=== PATIENT | female | born 1960 | race Two or more races ===

== ENCOUNTER 2023-09-13 08:14 | Emergency (ER) | payer OTHER ==
[~2023-09-13] VITALS: Ht 172.7 cm; Wt 145.1 kg
[~2023-09-13 08:14] MED LIST: PAXIL30 MG
[2023-09-13] MEDS ORDERED: METOPROLOL SUCC50 MG PO (08:29)
[2023-09-13] MEDS ORDERED: RISPERIDONE0.25 MG PO (08:29)
[2023-09-13] MEDS ORDERED: NORVASC10 MG PO (08:29)
[2023-09-13] MEDS ORDERED: AVAPRO300 MG PO (08:30)
[2023-09-13] MEDS ORDERED: MOUNJARO10 MG/0.5 SQ (08:30)
[2023-09-13] MEDS ORDERED: FARXIGA10 MG PO (08:30)
[2023-09-13] MEDS ORDERED: METHYLPREDNISOLONE SOD SUCC 40 MG VIAL ONE (08:53)
[2023-09-13] MEDS ORDERED: DIPHENHYDRAMINE HCL 50 MG/ML VIAL 1ML ONE (08:53)
[2023-09-13] MEDS ORDERED: METHYLPREDNISOLONE SOD SUCC 40 MG VIAL IM ONE (09:00)
[2023-09-13] MEDS ORDERED: DIPHENHYDRAMINE HCL 50 MG/ML VIAL 1ML IM ONE (09:00)
[2023-09-13 09:13] LABS: HEMATOCRIT 40.7 % (36.0-45.00); HEMOGLOBIN 13.5 g/dL (12.0-15.00); MEAN CELL VOLUME 91.4 fL (80.00-100.00); MEAN CORPUSCULAR HEMOGLOBIN 30.4 pg (27.00-32.0); MEAN CORPUSCULAR HGB CONC 33.3 g/dl (32.0-36.0); PLATELET COUNT 242 K/uL (150-450); RED BLOOD COUNT 4.45 M/uL (4.00-6.00); RED CELL DISTRIBUTION WIDTH 14.9 % (11.5-14.5)
[2023-09-13] MEDS ORDERED: BENADRYL25 MG PO (09:48)
== END 2023-09-13 09:51 | disposition home or self-care (01) ==
LOC: ER 08:15
PROVIDERS: General Practice
DX: T78.49XA Other allergy, initial encounter (principal); X58.XXXA Exposure to other specified factors, initial encounter; I10 Essential (primary) hypertension; E11.9 Type 2 diabetes mellitus without complications; Z79.84 Long term (current) use of oral hypoglycemic drugs; Z88.6 Allergy status to analgesic agent; Z88.8 Allergy status to other drugs, medicaments and biological substances; Z86.73 Personal history of transient ischemic attack (TIA), and cerebral infarction without residual deficits
CPT/HCPCS: 36415; 96372; 99283; J1200

== ENCOUNTER 2023-10-07 09:08 | Emergency (ER) | payer OTHER ==
[~2023-10-07] VITALS: Ht 172.7 cm; Wt 145.1 kg
[~2023-10-07 09:08] MED LIST changes: +AVAPRO300 MG PO; +BENADRYL25 MG PO; +FARXIGA10 MG PO; +METOPROLOL SUCC50 MG PO; +MOUNJARO10 MG/0.5 SQ; +NORVASC10 MG PO; +RISPERIDONE0.25 MG PO
[2023-10-07 13:02] LABS: CALCIUM 9.4 mg/dL (8.5-10.1); CREATININE SERUM 0.91 mg/dL (0.55-1.02); GFR 62.85; POTASSIUM 3.75 mEq/L (3.5-5.1)
[2023-10-07 13:18] LABS: HEMOGLOBIN 15.2 g/dL (12.0-15.00); MEAN CELL VOLUME 93.2 fL (80.00-100.00); MEAN CORPUSCULAR HEMOGLOBIN 31.4 pg (27.00-32.0); MEAN CORPUSCULAR HGB CONC 33.7 g/dl (32.0-36.0); PLATELET COUNT 260 K/uL (150-450); RED BLOOD COUNT 4.83 M/uL (4.00-6.00); RED CELL DISTRIBUTION WIDTH 15.1 % (11.5-14.5)
[2023-10-07] MEDS ORDERED: MEPERIDINE HCL/PF 25 MG/ML VIAL IV ONE (14:00)
[2023-10-07] MEDS ORDERED: 0.9 % SODIUM CHLORIDE 500 ML IV ONE (14:00)
== END 2023-10-07 16:17 | disposition home or self-care (01) ==
LOC: ER 09:10
PROVIDERS: General Practice
DX: E86.0 Dehydration (principal); I95.9 Hypotension, unspecified; R42 Dizziness and giddiness; I10 Essential (primary) hypertension; E03.8 Other specified hypothyroidism; E11.9 Type 2 diabetes mellitus without complications; Z88.6 Allergy status to analgesic agent
CPT/HCPCS: 36415; 93005; 96365; 99282; J3490; J7042

== ENCOUNTER 2023-12-05 13:13 | Emergency (ER) | payer OTHER ==
[~2023-12-05] VITALS: Ht 172.7 cm; Wt 140.6 kg
[2023-12-05] MEDS ORDERED: DIOVAN160 M1 PO (14:17)
[2023-12-05 14:19] VITALS: BP 151/77; O2SAT 96
[2023-12-05] MEDS ORDERED: ORPHENADRINE CITRATE 30 MG/ML AMPUL IM STA (15:34)
[2023-12-05] MEDS ORDERED: DEXAMETHASONE SODIUM PHOSPHATE 4 MG/ML VIAL IM STA (15:34)
[2023-12-05] MEDS ORDERED: ACETAMINOPHEN 325 MG TABLET PO STA (15:38)
[2023-12-05] MEDS ORDERED: NORFLEX100MG PO (19:00)
== END 2023-12-05 19:19 | disposition home or self-care (01) ==
LOC: ER 13:14
DX: M62.838 Other muscle spasm (principal); Z88.6 Allergy status to analgesic agent
CPT/HCPCS: 96372; 99282; J1100; J2360

== ENCOUNTER 2023-12-10 10:47 | Emergency (ER) | payer OTHER ==
[~2023-12-10] VITALS: Ht 172.7 cm; Wt 138.3 kg
[~2023-12-10 10:47] MED LIST changes: +DIOVAN160 M1 PO; +NORFLEX100MG PO
[2023-12-10] MEDS ORDERED: DEXAMETHASONE SODIUM PHOSPHATE 4 MG/ML VIAL IM STA (12:03)
[2023-12-10] MEDS ORDERED: TRIAMCINOLONE ACETONIDE 40 MG/ML VIAL IM STA (13:00)
== END 2023-12-10 13:12 | disposition home or self-care (01) ==
LOC: ER 10:48
DX: M25.562 Pain in left knee (principal); M25.462 Effusion, left knee; M17.12 Unilateral primary osteoarthritis, left knee; M79.7 Fibromyalgia; Z88.6 Allergy status to analgesic agent; Z88.8 Allergy status to other drugs, medicaments and biological substances

== ENCOUNTER 2024-04-08 08:18 | Emergency (ER) | payer OTHER ==
[~2024-04-08] VITALS: Ht 172.7 cm; Wt 138.3 kg
[2024-04-08] MEDS ORDERED: PLAVIX75 MG PO (09:05)
[2024-04-08] MEDS ORDERED: AMBIEN10 MG PO (09:05)
[2024-04-08] MEDS ORDERED: DEXAMETHASONE SODIUM PHOSPHATE 4 MG/ML VIAL IM STA (09:50)
[2024-04-08] MEDS ORDERED: DEXAMETHASONE SODIUM PHOSPHATE 4 MG/ML VIAL ONE (10:22)
== END 2024-04-08 12:37 | disposition home or self-care (01) ==
LOC: ER 08:21
DX: H66.90 Otitis media, unspecified, unspecified ear (principal); M94.0 Chondrocostal junction syndrome [Tietze]; I10 Essential (primary) hypertension; Z88.6 Allergy status to analgesic agent
CPT/HCPCS: 36415; 93005; 96372; 99282; J1100